=== PATIENT | male | born 1945 | race Caucasian/White ===

== ENCOUNTER → 2018-04-16 10:54 | Outpatient (CLI) | payer MEDICARE, OTHER, SELFPAY ==
--- NOTE | 2018-04-16 10:54 | DT_ITS ---
This patient was seen during an EMR downtime April 16, 2018 - April 23, 2018. This patient may have a combination of paper and electronic documentation or all paper documentation. All documentation is viewable within the e-chart portion of [facility] for each patient visit.
[2018-04-22 03:33] LABS: Absolute Lymphocyte Count 2.03 X10^3/ul (0.83-4.51); Absolute Neutrophil Count 4.4 X10^3/uL (2.0-7.7); Basophil% 0.5 % (0-1); Eosinophil# 0.36 X10^3/uL; Eosinophils% 4.7 % (0-5); Hematocrit 48.2 % (40-54); Hemoglobin 15.8 g/dl (13.0-16.5); Lymphocyte # 2.03 X10^3/ul (4.0); Lymphocyte % 26.6 % (19-41); Mean Corp Hgb Conc 32.8 g/gl (32-36); Mean Corpuscular Hgb 30.9 pg (27.0-32.0); Mean Corpuscular Volume 94.3 fL (80-94); Mean Platelet Vol. 10.8 fl (6.2-12.0); Monocyte# 0.75 X10^3/uL; Monocyte% 9.8 % (0-10); Neutrophil # 4.43 X10^3/uL (2.7-7.7); POSITIVE COUNT NO; POSITIVE DIFFERENTIAL NO; POSITIVE MORPHOLOGY NO; Platelet Count 202 K/mm3 (150-450); RBC Distribution Width CV 13.2 % (11.6-14.6); Red Blood Count 5.11 M/mm3 (4.6-6.2); White Blood Count 7.6 K/mm3 (4.4-11.0)
[2018-04-22 03:34] LABS: Basophil# 0.04 X10^3/uL
[2018-04-22 04:19] LABS: Hemoglobin A1c 7.4 % (4.2-6.3); Microalbumin,Random Urine 60.2 mg/L (NO RANGE EST.)
[2018-04-22 09:07] LABS: ALB/GLOB Ratio 1.1 RATIO (0.9-2.4); AST(SGOT) 17 U/L (15-37); Albumin, Serum 3.9 g/dL (3.2-5.0); BUN 16 mg/dL (7-18); BUN/Creat Ratio 18.4 RATIO (10-20); Calcium,Total 8.6 mg/dL (8.5-10.1); Creatinine, Serum 0.87 mg/dL (0.70-1.30); EST Glomerular Filtration Rate 92 mL/min (>60); Est Glom Filt Rate - Afr Amer 112 mL/min (>60); Globulin 3.7 g/dL (2.2-4.2); Glucose 150 mg/dL (74-106); Protein, Total 7.6 g/dL (6.4-8.2)
[2018-04-22 09:08] LABS: Alanine Aminotransfer ALT/SGPT 30 U/L (16-61); Alkaline Phosphatase 88 U/L (45-117); Anion Gap 9 (5-15); Chloride 108 mmol/L (98-107); Cholesterol 188 mg/dL (200); High Density Lipoprotein 38 mg/dL; Sodium Level 142 mmol/L (136-145); Triglycerides 245 mg/dL; Very Low Density Lipoprotein 49 mg/dL (5-40)
[2018-04-22 09:09] LABS: PSA,Total- Diagnostic 0.05 ng/mL (0.0-4.0)
== END ==
PROVIDERS: Family Provider Family Medicine; PCP Family Medicine; Visit Provider Family Medicine
DX: C61 Malignant neoplasm of prostate (principal); E11.9 Type 2 diabetes mellitus without complications
CPT/HCPCS: 36415; 80053; 80061; 82043; 82570; 83036; 84153; 84443; 85025

== ENCOUNTER → 2019-01-09 10:44 | Outpatient (CLI) | payer MEDICARE, OTHER, SELFPAY ==
--- NOTE | 2019-01-09 13:16 | NEURO ---
NCS and/or EMG Patient Report Ordering Doctor: Binh Goldberg DATE OF SERVICE: 01/09/19 Jackson Pacheco is a 73-year-old male presents for electrodiagnostic testing of the right upper limb. He reports numbness and tingling in the right hand, worse over the past 2 months. Electrodiagnostic findings: Right median motor nerve demonstrates significantly prolonged distal latency with reduced amplitude and normal conduction velocity. Normal right ulnar motor response. Prolonged right median F wave. Absent right median sensory latency at the wrist and over the palm. Normal right ulnar and radial sensory responses. Needle EMG testing demonstrate no evidence of denervation a muscles tested. Motor unit action potentials were normal amplitude and duration. Electrodiagnostic impression: This is an abnormal study in the right upper limb. 1. Elective diagnostic findings demonstrate right-sided median mononeuropathy. This is consistent with a severe right carpal tunnel syndrome. If there are any further questions, please do not hesitate to contact me.
== END ==
PROVIDERS: Family Provider Family Medicine; PCP Family Medicine; Referring Provider Specialist; Visit Provider Specialist
DX: G56.01 Carpal tunnel syndrome, right upper limb (principal)
CPT/HCPCS: 95886; 95910

== ENCOUNTER → 2019-10-28 14:07 | Outpatient (CLI) | payer MEDICARE, OTHER, SELFPAY ==
[2019-10-28 15:23] LABS: PSA,Total - Annual Screen 0.07 ng/mL (0.00-4.00)
== END ==
PROVIDERS: Family Provider Family Medicine; PCP Family Medicine; Referring Provider Radiology Radiation Oncology; Visit Provider Radiology Radiation Oncology
DX: Z12.5 Encounter for screening for malignant neoplasm of prostate (principal); Z85.46 Personal history of malignant neoplasm of prostate
CPT/HCPCS: 36415; 84153; G0103

== ENCOUNTER → 2019-12-10 14:48 | Outpatient (CLI) | payer MEDICARE, OTHER, SELFPAY ==
[2019-12-10 18:11] LABS: ALB/GLOB Ratio 1.1 RATIO (0.9-2.4); AST(SGOT) 13 U/L (15-37); Alanine Aminotransfer ALT/SGPT 26 U/L (16-61); Albumin, Serum 3.9 g/dL (3.2-5.0); Alkaline Phosphatase 99 U/L (45-117); Anion Gap 5 (5-15); BUN 17 mg/dL (7-18); BUN/Creat Ratio 20.1 RATIO (10-20); Calcium,Total 9.3 mg/dL (8.5-10.1); Chloride 107 mmol/L (98-107); Cholesterol 189 mg/dL (200); Creatinine, Serum 0.85 mg/dL (0.70-1.30); EST Glomerular Filtration Rate 94 mL/min (>60); Est Glom Filt Rate - Afr Amer 114 mL/min (>60); Globulin 3.7 g/dL (2.2-4.2); Glucose 133 mg/dL (74-106); High Density Lipoprotein 40 mg/dL; Potassium 4.1 mmol/L (3.5-5.1); Protein, Total 7.6 g/dL (6.4-8.2); Sodium Level 139 mmol/L (136-145); Triglycerides 172 mg/dL; Very Low Density Lipoprotein 34 mg/dL (5-40)
== END ==
PROVIDERS: PCP Family Medicine; Referring Provider Family Medicine; Visit Provider Family Medicine
DX: Z00.00 Encounter for general adult medical examination without abnormal findings (principal); E11.9 Type 2 diabetes mellitus without complications
CPT/HCPCS: 36415; 80053; 80061

== ENCOUNTER → 2020-07-15 | Outpatient (CLI) | payer MEDICARE, OTHER, SELFPAY ==
--- NOTE | 2020-07-15 14:00 | CYST_PTH ---
PATIENT: OMAR YE LOC: [facility] U#:[id number] AGE/SX: 74/M ROOM: RE07/15/[address]: Dr. Julien Johnson MD : [id number] BED: DIS: 07/15/2020 SPEC #: [id number] RECD: 07/15/20 15:53 STATUS: BRITTNEY ANALIA #: [id number] SAWYER: 07/15/20 14:[address]: Julien Johnson DEPT: SURGICAL PATHOLOGY RECD BY: Ankur Cantu ENTERED: 07/16/20 12:42 SP TYPE: Cyst OTHR DR: Dr. Rudy Rivera MD Tissues: CYST Procedures: Surgery Specimen Level III HEADER OPERATION: Excision back cyst PRE-OP DIAGNOSIS: Back cyst TISSUE SUBMITTED: Back tissue MICROSCOPIC DIAGNOSIS Back cyst, excision: Epidermal inclusion cyst. LENORE:elizabeth 07/17/20 MICROSCOPIC DESCRIPTION Slides are reviewed. GROSS DESCRIPTION Received in fixative is one container labeled with the patient's name and designated back. The specimen consists of a tarango-white skin ellipse measuring 4 x 2 cm and up to 1 cm in thickness. No skin lesion is identified. The specimen is inked, serially sectioned and reveal a cyst filled with tarango-white cheesy material measuring 1.5 x 1.5 x 0.8 cm. Devops Architect sections are submitted in one cassette. / SJ:rg 07/16/20 TC:5 CPT: 14186
[2020-07-15 14:51] VITALS: BMI 28.1
== END | disposition home or self-care (01) ==
LOC: LABSPEC 16:03
PROVIDERS: PCP Family Medicine; Referring Provider Surgery; Visit Provider Surgery
DX: L72.0 Epidermal cyst (principal)
CPT/HCPCS: 88304

== ENCOUNTER → 2020-10-22 11:12 | Outpatient (CLI) | payer MEDICARE, OTHER, SELFPAY ==
[2020-08-18 14:32] VITALS: BMI 28.1
[2020-10-22 15:58] LABS: PSA,Total - Annual Screen 0.06 ng/mL (0.00-4.00)
== END ==
PROVIDERS: PCP Internal Medicine; Referring Provider Radiology Radiation Oncology; Visit Provider Radiology Radiation Oncology
DX: Z12.5 Encounter for screening for malignant neoplasm of prostate (principal); Z85.46 Personal history of malignant neoplasm of prostate
CPT/HCPCS: 36415; 84153; G0103

== ENCOUNTER → 2020-11-17 14:48 | Outpatient (CLI) | payer MEDICARE, OTHER, SELFPAY ==
[2020-11-17 14:08] VITALS: BMI 25.4
[2020-11-17 16:56] LABS: AST(SGOT) 16 U/L (15-37); Alanine Aminotransfer ALT/SGPT 27 U/L (16-61); Albumin, Serum 3.9 g/dL (3.2-5.0); Alkaline Phosphatase 137 U/L (45-117); Anion Gap 3 (5-15); BUN 15 mg/dL (7-18); Calcium,Total 9.6 mg/dL (8.5-10.1); Chloride 103 mmol/L (98-107); Creatinine, Serum 0.88 mg/dL (0.70-1.30); EST Glomerular Filtration Rate 90 mL/min (>60); Est Glom Filt Rate - Afr Amer 109 mL/min (>60); Globulin 4.1 g/dL (2.2-4.2); Glucose 144 mg/dL (74-106); Potassium 5.2 mmol/L (3.5-5.1); Sodium Level 138 mmol/L (136-145)
[2020-11-17 17:07] LABS: Microalbumin,Random Urine 96.1 mg/L (NO RANGE EST.); Microalbumin:Creatinine Ratio 355.9 mg/g CRE (<30 mg/g CRE)
[2020-11-17 17:30] LABS: Hemoglobin A1c 6.7 % (3.8-5.6)
== END ==
PROVIDERS: PCP Internal Medicine; Referring Provider Internal Medicine; Visit Provider Internal Medicine
DX: E11.9 Type 2 diabetes mellitus without complications (principal)
CPT/HCPCS: 36415; 80053; 82043; 82570; 83036

== ENCOUNTER → 2021-05-20 13:20 | Outpatient (CLI) | payer MEDICARE, OTHER, SELFPAY ==
[2021-05-18 13:14] VITALS: BMI 24.9
[2021-05-20 15:03] LABS: Absolute Lymphocyte Count 2.06 X10^3/uL (0.83-4.51); Basophil# 0.04 X10^3/uL; Basophil% 0.6 % (0-1); Eosinophil# 0.31 X10^3/uL; Eosinophils% 4.5 % (0-5); Hemoglobin 15.2 g/dL (13.0-16.5); Lymphocyte # 2.06 X10^3/ul (0.83-4.51); Lymphocyte % 29.6 % (19-41); Mean Corp Hgb Conc 32.3 g/dL (32-36); Mean Corpuscular Hgb 30.3 pg (27.0-32.0); Mean Corpuscular Volume 93.6 fL (80-94); Mean Platelet Vol. 9.7 fl (6.2-12.0); Monocyte# 0.56 X10^3/uL; NRBC Flagged by Analyzer 0 % (0-5); Neutrophil # 3.97 X10^3/uL (2.7-7.7); Platelet Count 205 K/mm3 (150-450); RBC Distribution Width CV 13.5 % (11.6-14.6); RBC Distribution Width SD 46.3 fl (35.1-43.9); Red Blood Count 5.02 M/mm3 (4.6-6.2)
[2021-05-20 15:21] LABS: Hemoglobin A1c 6.4 % (3.8-5.6)
[2021-05-20 15:24] LABS: ALB/GLOB Ratio 0.9 RATIO (0.9-2.4); AST(SGOT) 15 U/L (15-37); Alanine Aminotransfer ALT/SGPT 19 U/L (16-61); Albumin, Serum 3.6 g/dL (3.2-5.0); Alkaline Phosphatase 119 U/L (45-117); Anion Gap 4 (5-15); BUN 13 mg/dL (7-18); BUN/Creat Ratio 15.5 RATIO (10-20); Calcium,Total 8.5 mg/dL (8.5-10.1); Chloride 108 mmol/L (98-107); Creatinine, Serum 0.84 mg/dL (0.70-1.30); EST Glomerular Filtration Rate 95 mL/min (>60); Est Glom Filt Rate - Afr Amer 115 mL/min (>60); Globulin 3.9 g/dL (2.2-4.2); Glucose 129 mg/dL (74-106); Potassium 4.3 mmol/L (3.5-5.1); Protein, Total 7.5 g/dL (6.4-8.2); Sodium Level 139 mmol/L (136-145); Thyroid Stim Hormone (TSH) 4.59 uIU/mL (0.358-3.74)
[2021-05-20 15:24] LABS: Microalbumin,Random Urine 79.1 mg/L (NO RANGE EST.); Microalbumin:Creatinine Ratio 201.3 mg/g CRE (<30 mg/g CRE)
== END ==
PROVIDERS: PCP Internal Medicine; Referring Provider Internal Medicine; Visit Provider Internal Medicine
DX: E11.9 Type 2 diabetes mellitus without complications (principal); I10 Essential (primary) hypertension; I49.9 Cardiac arrhythmia, unspecified
CPT/HCPCS: 36415; 80053; 82043; 82570; 83036; 84443; 85025

== ENCOUNTER → 2021-05-21 12:53 | Outpatient (CLI) | payer MEDICARE, OTHER, SELFPAY ==
[2021-05-18 13:14] VITALS: BMI 24.9
--- NOTE | 2021-05-21 12:56 | EKG12_ITS ---
Test Reason : ARRYTH Blood Pressure : / mmHG Vent. Rate : 073 BPM Atrial Rate : 073 BPM P-R Int : 158 ms QRS Dur : 094 ms QT Int : 388 ms P-R-T Axes : 078 088 066 degrees QTc Int : 427 ms Normal sinus rhythm with sinus arrhythmia Nonspecific ST and T wave abnormality Abnormal ECG Confirmed by MOLLY MCKEON, LOREN ([id number]), news assignment editor POLLY BOLAÑOS ([id number]) on 05/24/2021 12:47:36 PM Referred By: Sogn Laughlin Confirmed By:LOREN BARNES MD
== END ==
PROVIDERS: PCP Internal Medicine; Referring Provider Internal Medicine; Visit Provider Internal Medicine
DX: I10 Essential (primary) hypertension (principal); I49.9 Cardiac arrhythmia, unspecified
CPT/HCPCS: 93005

== ENCOUNTER → 2021-06-02 11:41 | Outpatient (CLI) | payer MEDICARE, OTHER, SELFPAY ==
[2021-05-18 13:14] VITALS: BMI 24.9
--- NOTE | 2021-06-02 13:32 | STRESSREP ---
Stress Test Report The test was terminated due to leg discomfort. No chest pain was noted.Exercise stress test. 75-year-old male with a history of chest pain. Stress protocol: Resting EKG demonstrates normal sinus rhythm with a rate of 57 bpm normal intervals are noted resting blood pressure is 152/62 mmHg. The patient exercised according to regular [facility] protocol for a total duration of 4 minutes and 16 seconds. The maximum heart rate attained was 121 bpm which was 82% of max infected heart rate the maximum workload was 6.1 metabolic equivalents. At rest there were no ST or T wave changes noted to suggest ischemia. At peak exercise there was approximately 1.[address] depression noted in leads II, III and aVF suggestive of ischemia. The peak blood pressure was 202/62 mmHg. Exercise stress test with EKG changes suggestive but not diagnostic of ischemia. Hypertensive response to exercise.
== END ==
PROVIDERS: PCP Internal Medicine; Referring Provider Internal Medicine; Visit Provider Internal Medicine
DX: R94.31 Abnormal electrocardiogram [ECG] [EKG] (principal)
CPT/HCPCS: 93017

== ENCOUNTER → 2021-07-12 12:51 | Outpatient (CLI) | payer MEDICARE, OTHER, SELFPAY ==
--- NOTE | 2021-07-12 12:52 | ECHOD_ITS ---
Version 2 Reason For Study: Murmur Procedure This was a 2D Doppler, Color Flow transthoracic echocardiogram. Myocardial strain analysis was performed in this exam to aid in the assessment of cardiac function. Exam performed in department. Left Ventricle Normal LV size. Left ventricular systolic function is normal. The estimated ejection fraction is 60 %. Stage 1 diastolic dysfunction. No regional wall motion abnormalities noted. Right Ventricle Normal RV size. Normal systolic function. Atria Normal left atrium. Normal right atrium. Mitral Valve Normal mitral valve. Tricuspid Valve Normal tricuspid valve. Mild tricuspid valve insufficiency. Aortic Valve Normal aortic valve. Peak aortic valve gradient 27 mmHg. Mean aortic valve gradient 14 mmHg. Mild aortic stenosis. Pulmonic Valve Normal pulmonic valve. Great Vessels Normal aortic root. The pulmonary artery is normal size. Normal inferior vena cava. Pericardium/Pleural No pericardial effusion. MMode/2D Measurements & Calculations LVIDd: 4.9 cm IVSd: 1.0 cm LVOT diam: 2.0 cm LVIDs: 3.1 cm LVPWd: 1.2 cm LVOT area: 3.3 cm2 FS: 36.9 % LA dimension: 4.2 cm LAV(MOD-bp): 64.9 ml LA A4 area: 18.4 cm2 LAV(MOD-bp) Indexed: 34.5 ml/m2 LAV(MOD-sp2): 74.9 ml LAV(MOD-sp4): 52.3 ml RA A4 area: 14.7 cm2 Time Measurements MV dec time: 0.32 sec Doppler Measurements & Calculations MV E max jeevan: 80.9 cm/sec Lat Peak E' Jeevan: 6.8 cm/sec Med Peak E' Jeevan: 7.2 cm/sec MV A max jeevan: 110.9 cm/sec E/E' lat: 11.8 E/E' med: 11.3 MV E/A: 0.73 MV V2 max: 124.7 cm/sec MV P1/2t max jeevan: 95.8 cm/sec Ao V2 max: 261.7 cm/sec MV max P.2 mmHg MV P1/2t: 109.8 msec Ao max P.4 mmHg MV V2 mean: 57.7 cm/sec MV dec slope: 255.6 cm/sec2 Ao V2 mean: 173.4 cm/sec MV mean P.7 mmHg Ao mean P.9 mmHg MV V2 VTI: 40.3 cm MVA(P1/2t): 2.0 cm2 Ao V2 VTI: 55.7 cm MVA(VTI): 2.0 cm2 LEANNE(I,D): 1.4 cm2 LEANNE(V,D): 1.5 cm2 LV V1 max: 121.9 cm/sec SV(LVOT): 80.2 ml PA V2 max: 134.8 cm/sec LV V1 max P.0 mmHg LV V1 mean P.6 mmHg LV V1 mean: 72.8 cm/sec LV V1 VTI: 24.7 cm TR max jeevan: 204.2 cm/sec PI dec slope: 77.5 cm/sec2 TR max P.7 mmHg ECHO/Echo Complete Interpretation Summary Normal LV size. Left ventricular systolic function is normal. The estimated ejection fraction is 60 %. Stage 1 diastolic dysfunction. Mild aortic stenosis. The global longitudinal strain is borderline abnormal. The global longitudinal strain = -18.7 % (normal). Ordering Physician: Tito Cooper Referring Physician: Song Laughlin Performed By: Chandrakant Cobb RCS
== END ==
PROVIDERS: PCP Internal Medicine; Referring Provider Internal Medicine Cardiovascular Disease; Visit Provider Internal Medicine Cardiovascular Disease
DX: R94.31 Abnormal electrocardiogram [ECG] [EKG] (principal)
CPT/HCPCS: 93306

== ENCOUNTER → 2021-07-27 13:36 | Outpatient (CLI) | payer MEDICARE, OTHER, SELFPAY ==
--- NOTE | 2021-07-27 13:37 | RAD_ITS ---
STUDY: X-RAY - RIGHT SHOULDER REASON FOR EXAM: Right shoulder pain, lump at superior aspect of the shoulder. TECHNIQUE: 4 view(s) of the shoulder. COMPARISON: Radiographs 01/17/2017. FINDINGS: Normal glenohumeral articulation. There is acromioclavicular joint arthrosis with undersurface osteophytes. Normal acromion. Normal humeral head and visualized proximal humerus. There is superior migration of the humeral head consistent with chronic rotator cuff tear. There are healed right rib fractures. RAD/Shoulder min 2 Views IMPRESSION: Superior migration of the humeral head as on the prior study consistent with chronic rotator cuff tear. Acromioclavicular arthrosis. Electronically Signed: Ambrocio Swanson MD at 14:12 EDT Tel , Service support ,
== END ==
PROVIDERS: PCP Internal Medicine; Referring Provider Internal Medicine; Visit Provider Internal Medicine
DX: M25.411 Effusion, right shoulder (principal)
CPT/HCPCS: 73030

== ENCOUNTER 2022-01-05 11:04 | Outpatient (CLI) | payer MEDICARE, OTHER, SELFPAY ==
[2022-01-05 12:44] LABS: Anion Gap 7 (5-15); BUN 24 mg/dL (7-18); BUN/Creat Ratio 22.6 RATIO (10-20); Calcium,Total 8.9 mg/dL (8.5-10.1); Chloride 105 mmol/L (98-107); Creatinine, Serum 1.06 mg/dL (0.70-1.30); EST Glomerular Filtration Rate 72 mL/min (>60); Est Glom Filt Rate - Afr Amer 88 mL/min (>60); Glucose 296 mg/dL (74-106); PSA,Total - Annual Screen 0.06 ng/mL (0.00-4.00); Potassium 4.3 mmol/L (3.5-5.1); Sodium Level 137 mmol/L (136-145)
== END 2022-01-05 23:59 | disposition home or self-care (01) ==
LOC: BIMLAB 11:05
PROVIDERS: PCP Internal Medicine; Referring Provider Internal Medicine; Visit Provider Internal Medicine
DX: Z85.46 Personal history of malignant neoplasm of prostate (principal); Z12.5 Encounter for screening for malignant neoplasm of prostate
CPT/HCPCS: 36415; 80048; 84153; G0103

== ENCOUNTER → 2022-07-06 | Outpatient (CLI) | payer MEDICARE, OTHER, SELFPAY ==
[2022-07-06 15:10] LABS: Absolute Lymphocyte Count 1.78 X10^3/uL (0.83-4.51); Absolute Neutrophil Count 4.2 X10^3/uL (2.0-7.7); Basophil# 0.04 X10^3/uL; Basophil% 0.6 % (0-1); Eosinophil# 0.24 X10^3/uL; Eosinophils% 3.5 % (0-5); Hematocrit 44.4 % (40-54); Lymphocyte # 1.78 X10^3/ul (0.83-4.51); Lymphocyte % 25.7 % (19-41); Mean Corp Hgb Conc 33.8 g/dL (32-36); Mean Corpuscular Hgb 31.3 pg (27.0-32.0); Mean Corpuscular Volume 92.5 fL (80-94); Mean Platelet Vol. 9.9 fl (6.2-12.0); Monocyte# 0.68 X10^3/uL; Monocyte% 9.8 % (0-10); NRBC Flagged by Analyzer 0 % (0-5); Neutrophil # 4.16 X10^3/uL (2.7-7.7); Platelet Count 242 K/mm3 (150-450); RBC Distribution Width CV 12.9 % (11.6-14.6); RBC Distribution Width SD 43.8 fl (35.1-43.9); White Blood Count 6.9 K/mm3 (4.4-11.0)
[2022-07-06 15:26] LABS: ALB/GLOB Ratio 0.9 RATIO (0.9-2.4); AST(SGOT) 12 U/L (15-37); Alanine Aminotransfer ALT/SGPT 20 U/L (16-61); Albumin, Serum 3.7 g/dL (3.2-5.0); Alkaline Phosphatase 103 U/L (45-117); Anion Gap 3 (5-15); BUN 14 mg/dL (7-18); BUN/Creat Ratio 18.2 RATIO (10-20); Chloride 107 mmol/L (98-107); Cholesterol 156 mg/dL (200); Creatinine, Serum 0.77 mg/dL (0.70-1.30); EST Glomerular Filtration Rate 105 mL/min (>60); Est Glom Filt Rate - Afr Amer 127 mL/min (>60); Globulin 4.1 g/dL (2.2-4.2); Glucose 135 mg/dL (74-106); High Density Lipoprotein 37 mg/dL; Potassium 4.5 mmol/L (3.5-5.1); Protein, Total 7.8 g/dL (6.4-8.2); Sodium Level 139 mmol/L (136-145); Triglycerides 144 mg/dL; Very Low Density Lipoprotein 29 mg/dL (5-40)
== END | disposition home or self-care (01) ==
LOC: BIMLAB 13:36
PROVIDERS: PCP Internal Medicine; Referring Provider Internal Medicine; Visit Provider Internal Medicine
DX: E11.69 Type 2 diabetes mellitus with other specified complication (principal); Z85.46 Personal history of malignant neoplasm of prostate
CPT/HCPCS: 36415; 80053; 80061; 85025

== ENCOUNTER → 2023-01-13 | Outpatient (CLI) | payer MEDICARE, OTHER, SELFPAY ==
[2023-01-13 15:39] LABS: Anion Gap 6 (5-15); BUN 25 mg/dL (7-18); BUN/Creat Ratio 28.4 RATIO (10-20); Calcium,Total 9.7 mg/dL (8.5-10.1); Chloride 102 mmol/L (98-107); Creatinine, Serum 0.88 mg/dL (0.70-1.30); EST Glomerular Filtration Rate 89 mL/min (>60); Est Glom Filt Rate - Afr Amer 108 mL/min (>60); Glucose 235 mg/dL (74-106); PSA,Total - Annual Screen 0.07 ng/mL (0.00-4.00); Potassium 4.8 mmol/L (3.5-5.1); Sodium Level 137 mmol/L (136-145)
== END | disposition home or self-care (01) ==
LOC: BIMLAB 13:38
PROVIDERS: PCP Internal Medicine; Referring Provider Internal Medicine; Visit Provider Internal Medicine
DX: E11.9 Type 2 diabetes mellitus without complications (principal); Z12.5 Encounter for screening for malignant neoplasm of prostate; Z85.46 Personal history of malignant neoplasm of prostate
CPT/HCPCS: 36415; 80048; 84153; G0103

== ENCOUNTER → 2023-03-15 | Outpatient (CLI) | payer MEDICARE, OTHER, SELFPAY ==
--- NOTE | 2023-03-15 09:52 | ECHOD_ITS ---
Reason For Study: AORTIC STENOSIS Procedure This was a 2D Doppler, Color Flow transthoracic echocardiogram. Exam performed in department. Left Ventricle Normal LV size. Left ventricular systolic function is normal. The estimated ejection fraction is 60 %. Stage 1 diastolic dysfunction. No regional wall motion abnormalities noted. Right Ventricle Normal RV size. Normal systolic function. Atria Normal left atrium. Normal right atrium. Mitral Valve Normal mitral valve. Tricuspid Valve Normal tricuspid valve. Aortic Valve Trisinus/trileaflet aortic valve. Moderate diffuse aortic valve thickening. Peak aortic valve gradient 37 mmHg. Mean aortic valve gradient 23 mmHg. Mild to moderate aortic stenosis. Pulmonic Valve Normal pulmonic valve. Great Vessels Normal aortic root. The pulmonary artery is normal size. Normal inferior vena cava. Pericardium/Pleural No pericardial effusion. MMode/2D Measurements & Calculations LVIDd: 5.6 cm IVSd: 1.3 cm LVOT diam: 2.0 cm LVIDs: 3.2 cm LVPWd: 1.4 cm LVOT area: 3.1 cm2 FS: 43.4 % Ao root diam: 3.1 cm LAV(MOD-bp): 53.7 ml LVAd ap4: 29.4 cm2 LAV(MOD-bp) Indexed: 28.4 ml/m2 LVLd ap4: 7.3 cm LAV(MOD-sp2): 53.5 ml EDV(MOD-sp4): 98.5 ml LAV(MOD-sp4): 48.0 ml EDV(sp4-el): 100.8 ml LVAs ap4: 14.7 cm2 LVLs ap4: 5.6 cm ESV(MOD-sp4): 34.1 ml ESV(sp4-el): 32.8 ml EF(MOD-sp4): 65.4 % EF(sp4-el): 67.5 % SV(MOD-sp4): 64.4 ml SV(sp4-el): 68.0 ml LA A4 area: 18.0 cm2 RA A4 area: 12.3 cm2 Time Measurements MV dec time: 0.24 sec Doppler Measurements & Calculations MV E max jeevan: 87.5 cm/sec Lat Peak E' Jeevan: 8.9 cm/sec Med Peak E' Jeevan: 6.0 cm/sec MV A max jeevan: 112.0 cm/sec E/E' lat: 9.8 E/E' med: 14.5 MV E/A: 0.78 MV V2 max: 122.1 cm/sec Ao V2 max: 302.5 cm/sec MV max P.0 mmHg MV dec slope: 371.8 cm/sec2 Ao max P.1 mmHg MV V2 mean: 75.7 cm/sec Ao V2 mean: 224.6 cm/sec MV mean P.6 mmHg Ao mean P.9 mmHg MV V2 VTI: 41.6 cm Ao V2 VTI: 70.3 cm AV (velocity ratio): 0.41 MVA(VTI): 2.1 cm2 LEANNE(I,D): 1.3 cm2 LEANNE(V,D): 1.4 cm2 LV V1 max: 137.4 cm/sec SV(LVOT): 88.9 ml LV V1 max P.6 mmHg LV V1 mean P.4 mmHg LV V1 mean: 100.4 cm/sec LV V1 VTI: 28.6 cm ECHO/Echo Complete Interpretation Summary Normal LV size. Left ventricular systolic function is normal. The estimated ejection fraction is 60 %. Stage 1 diastolic dysfunction. Mean aortic valve gradient 23 mmHg. Mild to moderate aortic stenosis. Compared to the previous the above is mildly worse. Ordering Physician: Ilir Eddy Referring Physician: Ilir Eddy Performed By: Mary Marques RCS
== END | disposition home or self-care (01) ==
LOC: CVS 09:50
PROVIDERS: PCP Internal Medicine; Referring Provider Nurse Practitioner Family; Visit Provider Nurse Practitioner Family
DX: R94.31 Abnormal electrocardiogram [ECG] [EKG] (principal); I35.0 Nonrheumatic aortic (valve) stenosis; I10 Essential (primary) hypertension; Z85.46 Personal history of malignant neoplasm of prostate
CPT/HCPCS: 93306

== ENCOUNTER → 2023-08-08 | Outpatient (CLI) | payer MEDICARE, OTHER, SELFPAY ==
[2023-08-08 15:21] LABS: Absolute Lymphocyte Count 2.45 X10^3/uL (0.83-4.51); Absolute Neutrophil Count 3.9 X10^3/uL (2.0-7.7); Basophil# 0.06 X10^3/uL; Basophil% 0.8 % (0-1); Eosinophil# 0.44 X10^3/uL; Eosinophils% 5.9 % (0-5); Hematocrit 47.9 % (40-54); Hemoglobin 15.5 g/dL (13.0-16.5); Lymphocyte # 2.45 X10^3/ul (0.83-4.51); Lymphocyte % 32.6 % (19-41); Mean Corp Hgb Conc 32.4 g/dL (32-36); Mean Corpuscular Hgb 31.3 pg (27.0-32.0); Mean Corpuscular Volume 96.8 fL (80-94); Mean Platelet Vol. 10.3 fl (6.2-12.0); Monocyte# 0.63 X10^3/uL; Monocyte% 8.4 % (0-10); NRBC Flagged by Analyzer 0 % (0-5); Neutrophil % 51.9 % (47-70); Platelet Count 217 K/mm3 (150-450); RBC Distribution Width CV 13.5 % (11.6-14.6); RBC Distribution Width SD 48.5 fl (35.1-43.9); Red Blood Count 4.95 M/mm3 (4.6-6.2); White Blood Count 7.5 K/mm3 (4.4-11.0)
[2023-08-08 16:23] LABS: AST(SGOT) 17 U/L (15-37); Alanine Aminotransfer ALT/SGPT 21 U/L (16-61); Albumin, Serum 3.7 g/dL (3.2-5.0); Alkaline Phosphatase 111 U/L (45-117); Anion Gap 2 (5-15); BUN 17 mg/dL (7-18); BUN/Creat Ratio 21.4 RATIO (10-20); Calcium,Total 8.8 mg/dL (8.5-10.1); Chloride 107 mmol/L (98-107); Cholesterol 158 mg/dL (200); Creatinine, Serum 0.79 mg/dL (0.70-1.30); EST Glomerular Filtration Rate 101 mL/min (>60); Est Glom Filt Rate - Afr Amer 122 mL/min (>60); Globulin 3.8 g/dL (2.2-4.2); Glucose 121 mg/dL (74-106); High Density Lipoprotein 35 mg/dL; Potassium 4.6 mmol/L (3.5-5.1); Protein, Total 7.5 g/dL (6.4-8.2); Sodium Level 139 mmol/L (136-145); Triglycerides 353 mg/dL; Very Low Density Lipoprotein 71 mg/dL (5-40)
== END | disposition home or self-care (01) ==
LOC: BIMLAB 11:54
PROVIDERS: PCP Internal Medicine; Visit Provider Internal Medicine
DX: I10 Essential (primary) hypertension (principal); E11.9 Type 2 diabetes mellitus without complications; E78.5 Hyperlipidemia, unspecified; Z85.46 Personal history of malignant neoplasm of prostate
CPT/HCPCS: 36415; 80053; 80061; 85025

== ENCOUNTER → 2023-09-15 | Outpatient (CLI) | payer MEDICARE, OTHER, SELFPAY ==
--- NOTE | 2023-09-15 12:54 | CDU_ITS ---
Reason For Study: Dizziness Rt. Velocities/BP Lt. Velocities/BP Prox CCA 77.3/15.7 cm/sec. Prox CCA 96.1/19.4 cm/sec. Mid CCA 75.1/15.7 cm/sec. Mid CCA 103.4/23.0 cm/sec. Dist CCA 104.7/24.3 cm/sec. Dist CCA 97.9/17.5 cm/sec. Prox ICA 184.8/29.3 cm/sec. Prox ICA 144.9/20.5 cm/sec. Mid ICA 153.7/21.5 cm/sec. Mid ICA 131.3/29.0 cm/sec. Dist ICA 96.1/26.2 cm/sec. Dist ICA 152.7/33.4 cm/sec. Rt. ICA/CCA = 2.5. Lt. ICA/CCA = 1.5. Prox ECA 165.3/13.8 cm/sec. Prox ECA 215.4/19.2 cm/sec. Rt. Vert. 39.1/7.0 cm/sec. Lt. Vert. 83.3/13.9 cm/sec. Right Extracranial There is heterogeneous, smooth atherosclerotic plaque noted in the right common carotid artery. There is heterogeneous, irregular atherosclerotic plaque noted in the right internal carotid artery. The atherosclerotic plaque causes acoustic shadowing. There is heterogeneous, irregular atherosclerotic plaque noted in the right external carotid artery. Antegrade flow is noted in the right vertebral artery. Left Extracranial There is heterogeneous, smooth atherosclerotic plaque noted in the left common carotid artery. There is heterogeneous, irregular atherosclerotic plaque noted in the left internal carotid artery. The atherosclerotic plaque causes acoustic shadowing. There is heterogeneous, irregular atherosclerotic plaque noted in the left external carotid artery. Antegrade flow is noted in the left vertebral artery. Procedure This is a Carotid Duplex examination using B-mode, color flow and specral Doppler. Carotid Duplex [id number]. The exam was diagnostic. Exam performed in department. VL/Carotid Duplex Ultrasound Interpretation Summary Irregular calcific plaque of the proximal right internal carotid artery with 50 to 69% stenosis Less than 50% stenosis right external carotid artery Heterogenous plaque noted in the distal right common carotid artery as well Irregular calcific plaque with shadowing at the proximal left internal carotid artery with 50 to 69% stenosis Greater than 50% stenosis left external carotid artery Patent and antegrade vertebral arteries bilaterally Ordering Physician: Ilir Eddy Referring Physician: Song Laughlin Performed By: Jovani Gupta RVT
== END | disposition home or self-care (01) ==
LOC: CVS 12:54
PROVIDERS: PCP Internal Medicine; Referring Provider Nurse Practitioner Family; Visit Provider Nurse Practitioner Family
DX: R42 Dizziness and giddiness (principal); E11.69 Type 2 diabetes mellitus with other specified complication; I35.0 Nonrheumatic aortic (valve) stenosis; I10 Essential (primary) hypertension; H53.9 Unspecified visual disturbance
CPT/HCPCS: 93880

== ENCOUNTER → 2024-03-04 | Outpatient (CLI) | payer MEDICARE, SELFPAY ==
--- NOTE | 2024-03-04 15:04 | ECHOD_ITS ---
Reason For Study: AORTIC STENOSIS Procedure This was a 2D Doppler, Color Flow transthoracic echocardiogram. Myocardial strain analysis was performed in this exam to aid in the assessment of cardiac function. Exam performed in department. Left Ventricle Normal LV size. Moderate concentric left ventricular hypertrophy. Apical hypertrophy. Left ventricular systolic function is normal. The estimated ejection fraction is 65 %. Stage 1 diastolic dysfunction. No regional wall motion abnormalities noted. Right Ventricle Normal RV size. Normal systolic function. Atria Normal left atrium. Normal right atrium. Mitral Valve Normal mitral valve. Tricuspid Valve Normal tricuspid valve. Aortic Valve Peak aortic valve gradient 29 mmHg. Mean aortic valve gradient 17 mmHg. Pulmonic Valve Normal pulmonic valve. Great Vessels Normal aortic root. The pulmonary is not well visualized. Normal inferior vena cava. Pericardium/Pleural No pericardial effusion. MMode/2D Measurements & Calculations LVIDd: 5.1 cm IVSd: 1.4 cm LVOT diam: 2.0 cm LVIDs: 2.4 cm LVPWd: 1.3 cm LVOT area: 3.1 cm2 RVDd: 3.3 cm FS: 53.3 % Ao root diam: 3.6 cm LAV(MOD-bp): 47.7 ml LVAd ap4: 26.0 cm2 LAV(MOD-bp) Indexed: 25.3 ml/m2 LVLd ap4: 7.4 cm LAV(MOD-sp2): 44.0 ml EDV(MOD-sp4): 75.8 ml LAV(MOD-sp4): 47.4 ml EDV(sp4-el): 77.5 ml LVAs ap4: 13.4 cm2 LVLs ap4: 6.1 cm ESV(MOD-sp4): 27.8 ml ESV(sp4-el): 25.1 ml EF(MOD-sp4): 63.3 % EF(sp4-el): 67.7 % LVAd ap2: 23.6 cm2 SV(MOD-sp4): 48.0 ml SV(MOD-sp2): 43.7 ml LVLd ap2: 7.1 cm EDV(MOD-sp2): 69.9 ml EDV(sp2-el): 66.3 ml LVAs ap2: 13.3 cm2 LVLs ap2: 6.4 cm ESV(MOD-sp2): 26.2 ml ESV(sp2-el): 23.4 ml EF(MOD-sp2): 62.5 % SV(sp4-el): 52.4 ml LA dimension(2D): 3.5 cm LA A4 area: 17.6 cm2 RA A4 area: 11.8 cm2 TAPSE: 2.4 cm Time Measurements MV dec time: 0.18 sec Doppler Measurements & Calculations MV E max jeevan: 89.2 cm/sec Lat Peak E' Jeevan: 9.5 cm/sec Med Peak E' Jeevan: 7.2 cm/sec MV A max jeevan: 103.7 cm/sec E/E' lat: 9.4 E/E' med: 12.4 MV E/A: 0.86 Ao V2 max: 271.1 cm/sec LV V1 max: 134.7 cm/sec MV dec slope: 489.3 cm/sec2 Ao max P.6 mmHg LV V1 max P.3 mmHg Ao V2 mean: 193.3 cm/sec LV V1 mean P.1 mmHg Ao mean P.7 mmHg LV V1 mean: 94.6 cm/sec Ao V2 VTI: 55.3 cm LV V1 VTI: 28.4 cm AV (velocity ratio): 0.51 LEANNE(I,D): 1.6 cm2 LEANNE(V,D): 1.5 cm2 SV(LVOT): 87.2 ml PA V2 max: 120.4 cm/sec PA max PG (full): 2.8 mmHg ECHO/Echo Complete Interpretation Summary Normal LV size. Left ventricular systolic function is normal. Moderate concentric left ventricular hypertrophy. Apical hypertrophy The estimated ejection fraction is 65 %. Stage 1 diastolic dysfunction. Mean aortic valve gradient 17 mmHg. Compared to the previous the AV area is unchanged. The global longitudinal stra in is moderately abnormal. The global longitudinal strain = -15.4% (abnormal). Ordering Physician: Ilir Eddy Referring Physician: Song Laughlin Performed By: Hoda Chin RDCS
== END | disposition home or self-care (01) ==
LOC: CVS 15:02
PROVIDERS: PCP Internal Medicine; Referring Provider Nurse Practitioner Family; Visit Provider Nurse Practitioner Family
DX: R94.31 Abnormal electrocardiogram [ECG] [EKG] (principal); I35.0 Nonrheumatic aortic (valve) stenosis
CPT/HCPCS: 93306

== ENCOUNTER → 2024-03-11 | Outpatient (CLI) | payer MEDICARE, SELFPAY ==
[2024-03-11 18:20] LABS: AST(SGOT) 16 U/L (15-37); Alanine Aminotransfer ALT/SGPT 22 U/L (16-61); Albumin, Serum 3.8 g/dL (3.2-5.0); Alkaline Phosphatase 111 U/L (45-117); Anion Gap 6 (5-15); BUN 31 mg/dL (7-18); BUN/Creat Ratio 30.1 RATIO (10-20); Calcium,Total 9.1 mg/dL (8.5-10.1); Chloride 108 mmol/L (98-107); Cholesterol 185 mg/dL (200); Creatinine, Serum 1.03 mg/dL (0.70-1.30); EST Glomerular Filtration Rate 74 mL/min (>60); Est Glom Filt Rate - Afr Amer 90 mL/min (>60); Glucose 167 mg/dL (74-106); High Density Lipoprotein 42 mg/dL; Potassium 4.9 mmol/L (3.5-5.1); Protein, Total 7.8 g/dL (6.4-8.2); Sodium Level 139 mmol/L (136-145); Triglycerides 196 mg/dL; Very Low Density Lipoprotein 39 mg/dL (5-40)
== END | disposition home or self-care (01) ==
LOC: BIMLAB 13:33
PROVIDERS: PCP Internal Medicine; Visit Provider Internal Medicine
DX: E11.69 Type 2 diabetes mellitus with other specified complication (principal)
CPT/HCPCS: 36415; 80053; 80061

== ENCOUNTER → 2024-09-16 | Outpatient (CLI) | payer MEDICARE, SELFPAY ==
[2024-09-16 16:31] LABS: Absolute Lymphocyte Count 2.46 X10^3/uL (0.83-4.51); Absolute Neutrophil Count 3.9 X10^3/uL (2.0-7.7); Basophil# 0.06 X10^3/uL; Basophil% 0.8 % (0-1); Eosinophil# 0.43 X10^3/uL; Eosinophils% 5.7 % (0-5); Hematocrit 47.8 % (40-54); Hemoglobin 15.8 g/dL (13.0-16.5); Lymphocyte # 2.46 X10^3/ul (0.83-4.51); Lymphocyte % 32.8 % (19-41); Mean Corp Hgb Conc 33.1 g/dL (32-36); Mean Corpuscular Hgb 31.1 pg (27.0-32.0); Mean Corpuscular Volume 94.1 fL (80-94); Mean Platelet Vol. 10.1 fl (6.2-12.0); Monocyte# 0.62 X10^3/uL; Monocyte% 8.3 % (0-10); NRBC Flagged by Analyzer 0 % (0-5); Platelet Count 209 K/mm3 (150-450); RBC Distribution Width CV 12.8 % (11.6-14.6); RBC Distribution Width SD 44.4 fl (35.1-43.9); Red Blood Count 5.08 M/mm3 (4.6-6.2); White Blood Count 7.5 K/mm3 (4.4-11.0)
[2024-09-16 17:00] LABS: ALB/GLOB Ratio 0.9 RATIO (0.9-2.4); AST(SGOT) 16 U/L (15-37); Alanine Aminotransfer ALT/SGPT 24 U/L (16-61); Albumin, Serum 3.7 g/dL (3.2-5.0); Alkaline Phosphatase 128 U/L (45-117); Anion Gap 5 (5-15); BUN 20 mg/dL (7-18); BUN/Creat Ratio 22.8 RATIO (10-20); Chloride 104 mmol/L (98-107); Cholesterol 171 mg/dL (200); Creatinine, Serum 0.88 mg/dL (0.70-1.30); EST Glomerular Filtration Rate 90 mL/min (>60); Est Glom Filt Rate - Afr Amer 108 mL/min (>60); Globulin 4.1 g/dL (2.2-4.2); Glucose 135 mg/dL (74-106); High Density Lipoprotein 42 mg/dL; PSA,Total - Annual Screen 0.05 ng/mL (0.00-4.00); Potassium 4.7 mmol/L (3.5-5.1); Protein, Total 7.8 g/dL (6.4-8.2); Sodium Level 137 mmol/L (136-145); Triglycerides 111 mg/dL; Very Low Density Lipoprotein 22 mg/dL (5-40)
[2024-09-17 10:01] LABS: T4 Free Direct 0.91 ng/dL (0.76-1.46)
[2024-09-19 08:12] LABS: Thyroid Peroxidase AB < 9 IU/mL (0-34)
== END | disposition home or self-care (01) ==
LOC: BIMLAB 14:58
PROVIDERS: PCP Internal Medicine; Referring Provider Internal Medicine; Visit Provider Internal Medicine
DX: I10 Essential (primary) hypertension (principal); E11.69 Type 2 diabetes mellitus with other specified complication; I49.9 Cardiac arrhythmia, unspecified; E78.5 Hyperlipidemia, unspecified; R94.6 Abnormal results of thyroid function studies; Z12.5 Encounter for screening for malignant neoplasm of prostate; Z85.46 Personal history of malignant neoplasm of prostate
CPT/HCPCS: 36415; 80053; 80061; 82043; 82570; 84153; 84439; 84443; 85025; 86376; G0103

== ENCOUNTER → 2024-10-15 | Outpatient (CLI) | payer MEDICARE, SELFPAY ==
--- NOTE | 2024-10-15 09:52 | CDU_ITS ---
Reason For Study: Carotid Artery Disease Rt. Velocities/BP Lt. Velocities/BP Prox CCA 76.9/14.2 cm/sec. Prox CCA 101.6/13.9 cm/sec. Mid CCA 73.2/14.2 cm/sec. Mid CCA 97.9/10.2 cm/sec. Dist CCA 81.8/16.7 cm/sec. Dist CCA 97.9/15.7 cm/sec. Prox ICA 144.1/14.5 cm/sec. Prox ICA 127.1/19.4 cm/sec. Mid ICA 72.1/10.6 cm/sec. Mid ICA 70.5/10.2 cm/sec. Dist ICA 71.0/16.0 cm/sec. Dist ICA 103.4/23.0 cm/sec. Rt. ICA/CCA = 2.0. Lt. ICA/CCA = 1.3. Prox ECA 98.1/11.3 cm/sec. Prox ECA 219.3/22.3 cm/sec. Rt. Vert. 35.5/7.2 cm/sec. Lt. Vert. 66.6/8.4 cm/sec. Right Extracranial There is heterogeneous, irregular atherosclerotic plaque noted in the right common carotid artery. There is heterogeneous, irregular atherosclerotic plaque noted in the right internal carotid artery. The atherosclerotic plaque causes acoustic shadowing. The right external carotid artery is not well visualized. Antegrade flow is noted in the right vertebral artery. Left Extracranial There is heterogeneous, smooth atherosclerotic plaque noted in the left common carotid artery. There is heterogeneous, irregular atherosclerotic plaque noted in the left internal carotid artery. There is heterogeneous, irregular atherosclerotic plaque noted in the left external carotid artery. Antegrade flow is noted in the left vertebral artery. Procedure Carotid Duplex 17629. This is a Carotid Duplex examination using B-mode, color flow and specral Doppler. The exam was diagnostic. Exam performed in department. VL/Carotid Duplex Ultrasound Interpretation Summary Moderate (50-69%) stenosis right extracranial internal carotid. Moderate (50-69%) stenosis left extracranial internal carotid. Patent and antegrade vertebrals bilaterally. Ordering Physician: Ilir Eddy Referring Physician: Song Laughlin Performed By: Jovani Gupta RVT
== END | disposition home or self-care (01) ==
LOC: CVS 09:52
PROVIDERS: PCP Internal Medicine; Referring Provider Nurse Practitioner Family; Visit Provider Nurse Practitioner Family
DX: I65.22 Occlusion and stenosis of left carotid artery (principal)
CPT/HCPCS: 93880

== ENCOUNTER → 2024-12-18 | Outpatient (CLI) | payer MEDICARE, SELFPAY ==
[2024-12-18 18:01] LABS: T4 Free Direct 0.93 ng/dL (0.76-1.46)
== END | disposition home or self-care (01) ==
LOC: BIMLAB 13:45
PROVIDERS: PCP Internal Medicine; Referring Provider Internal Medicine; Visit Provider Internal Medicine
DX: I10 Essential (primary) hypertension (principal)
CPT/HCPCS: 36415; 84439; 84443

== ENCOUNTER → 2025-04-28 | Outpatient (CLI) | payer MEDICARE, SELFPAY ==
--- NOTE | 2025-04-28 13:57 | ECHOD_ITS ---
Reason For Study Reason For Study: MURMUR Procedure This was a 2D Doppler, Color Flow transthoracic echocardiogram. Exam performed in department. Left Ventricle Normal LV size. Moderate concentric left ventricular hypertrophy. The left ventricular ejection fraction is 60 %. Stage 1 diastolic dysfunction. No regional wall motion abnormalities noted. Right Ventricle Normal RV size. Normal systolic function. Atria Normal left atrium. Normal right atrium. Mitral Valve Normal mitral valve. Tricuspid Valve Normal tricuspid valve. Aortic Valve Peak aortic valve gradient 28 mmHg. Mean aortic valve gradient 17 mmHg. Mild aortic stenosis. Great Vessels Normal aortic root. The pulmonary artery is normal size. Inferior vena cava collapse with respiration. Pericardium/Pleural No pericardial effusion. MMode/2D Measurements & Calculations LVIDd: 5.1 cm IVSd: 1.2 cm LVOT diam: 1.8 cm LVIDs: 3.7 cm LVPWd: 1.4 cm LVOT area: 2.6 cm2 RVDd: 2.8 cm FS: 28.6 % Ao root diam: 2.8 cm LAV(MOD-bp): 60.3 ml LVAd ap4: 28.3 cm2 LAV(MOD-bp) Indexed: 32.0 ml/m2 LVLd ap4: 7.5 cm LAV(MOD-sp2): 52.3 ml EDV(MOD-sp4): 90.7 ml LAV(MOD-sp4): 52.0 ml EDV(sp4-el): 90.4 ml LVAs ap4: 17.8 cm2 LVLs ap4: 6.9 cm ESV(MOD-sp4): 42.1 ml ESV(sp4-el): 39.1 ml EF(MOD-sp4): 53.6 % EF(sp4-el): 56.8 % SV(MOD-sp4): 48.6 ml SV(sp4-el): 51.3 ml LA A4 area: 19.1 cm2 SI(MOD-sp4): 25.8 ml/m2 LA dimension(2D): 3.8 cm RA A4 area: 13.1 cm2 Time Measurements MV dec time: 0.19 sec Doppler Measurements & Calculations MV E max jeevan: 87.2 cm/sec Lat Peak E' Jeevan: 7.7 cm/sec Med Peak E' Jeevan: 6.5 cm/sec MV A max jeevan: 92.8 cm/sec E/E' lat: 11.3 E/E' med: 13.5 MV E/A: 0.94 MV V2 max: 109.5 cm/sec Ao V2 max: 268.5 cm/sec MV max P.8 mmHg MV dec slope: 461.0 cm/sec2 Ao max P.8 mmHg MV V2 mean: 61.0 cm/sec Ao V2 mean: 197.2 cm/sec MV mean P.8 mmHg Ao mean P.3 mmHg MV V2 VTI: 38.8 cm Ao V2 VTI: 69.2 cm AV (velocity ratio): 0.68 MVA(VTI): 3.1 cm2 LEANNE(I,D): 1.7 cm2 LEANNE(V,D): 1.7 cm2 LV V1 max: 182.2 cm/sec SV(LVOT): 120.4 ml PA V2 max: 119.2 cm/sec LV V1 max P.3 mmHg PA V2 mean: 92.8 cm/sec LV V1 mean P.5 mmHg LV V1 mean: 138.0 cm/sec LV V1 VTI: 47.0 cm ECHO/Echo Complete Interpretation Summary Normal LV size. The left ventricular ejection fraction is 60 %. Stage 1 diastolic dysfunction. Mild aortic stenosis. Mean aortic valve gradient 17 mmHg. Ordering Physician: Tito Cooper Referring Physician: Tito Cooper Performed By: Mary Marques RCS
== END | disposition home or self-care (01) ==
LOC: CVS 13:55
PROVIDERS: PCP Internal Medicine; Referring Provider Internal Medicine Cardiovascular Disease; Visit Provider Internal Medicine Cardiovascular Disease
DX: I35.0 Nonrheumatic aortic (valve) stenosis (principal)
CPT/HCPCS: 93306

== ENCOUNTER → 2025-07-23 | Outpatient (CLI) | payer MEDICARE, SELFPAY ==
[2025-07-23 15:25] LABS: Hematocrit 44.9 % (40-54); Hemoglobin 14.6 g/dL (13.0-16.5); Immature Granulocytes Count 0.020 X10^3/uL (0.0-0.0); Mean Corp Hgb Conc 32.5 g/dL (32-36); Mean Corpuscular Volume 93.9 fL (80-94); Mean Platelet Vol. 9.7 fl (6.2-12.0); NRBC Flagged by Analyzer 0 % (0-5); Platelet Count 226 K/mm3 (150-450); RBC Distribution Width CV 13.3 % (11.6-14.6); RBC Distribution Width SD 46.0 fl (35.1-43.9); Red Blood Count 4.78 M/mm3 (4.6-6.2); White Blood Count 6.7 K/mm3 (4.4-11.0)
[2025-07-23 16:06] LABS: AST(SGOT) 20 U/L (<=37); Alanine Aminotransfer ALT/SGPT 14 U/L (<=46); Albumin, Serum 4.2 g/dL (3.4-4.8); Alkaline Phosphatase 125 U/L (40-129); Anion Gap 12 (5-15); BUN 35 mg/dL (4-19); BUN/Creat Ratio 38.5 RATIO (10-20); Calcium,Total 9.3 mg/dL (7.6-11.0); Carbon Dioxide 24.0 mmol/L (21.0-32.0); Chloride 107 mmol/L (98-108); Cholesterol 157 mg/dL (<=200); Globulin 3.2 g/dL (2.2-4.2); Glucose 159 mg/dL (70-99); Low Density Lipoprotein Calc. 100 mg/dL; Potassium 4.6 mmol/L (3.3-5.1); Triglycerides 87 mg/dL; Very Low Density Lipoprotein 17 mg/dL (5-40); cholesterol:hdl ratio screen 3.98
[2025-07-23 16:54] LABS: Creatinine, Urine (random) 93.00 mg/dL (39.00-259.00); Microalbumin,Random Urine 318.0 mg/L (<20 mg/L)
== END | disposition home or self-care (01) ==
LOC: BIMLAB 13:45
PROVIDERS: PCP Internal Medicine; Referring Provider Internal Medicine; Visit Provider Internal Medicine
DX: E11.69 Type 2 diabetes mellitus with other specified complication (principal); E78.5 Hyperlipidemia, unspecified
CPT/HCPCS: 36415; 80053; 80061; 82043; 82570; 85025